=== PATIENT | male | born 1965 | race Caucasian/White ===

== ENCOUNTER 2022-02-24 17:58 | Emergency (ER) | payer OTHER ==
[2022-02-24] MEDS ORDERED: Acetaminophen/HYDROcodone 325-5 MG Tab PO ONE ×2 (19:00→19:59)
[2022-02-24] MEDS ORDERED: Ketorolac 30 MG/ML SDV IM ONE (19:01)
== END 2022-02-24 20:44 | disposition home or self-care (01) ==
LOC: JP.ED 17:58
DX: S82.141A Displaced bicondylar fracture of right tibia, initial encounter for closed fracture (principal); M25.561 Pain in right knee; I10 Essential (primary) hypertension; Z79.899 Other long term (current) drug therapy; Z87.891 Personal history of nicotine dependence; X50.1XXA Overexertion from prolonged static or awkward postures, initial encounter
CPT/HCPCS: 73564; 96372; 99283; A9270; J1885; 99282